=== PATIENT | female | born 2000 | race Two or more races ===

== ENCOUNTER 2023-09-29 13:51 | Emergency (ER) | payer MEDICAID ==
[~2023-09-29] VITALS: Ht 167.6 cm; Wt 55.0 kg
[2023-09-29 15:04] LABS: Urine Amorphous Crystal FEW /hpf (None Seen); Urine Bacteria FEW /hpf (None Seen); Urine Blood Negative /uL (Negative); Urine Clarity Turbid (Clear); Urine Color Yellow (Yellow); Urine Mucus FEW (None Seen); Urine Protein, UAD TRACE (Negative); Urine Specific Gravity 1.024 (1.001-1.035); Urine Urobilinogen Normal (Negative); Urine WBC 2 /hpf (0 - 5)
[2023-09-29 20:00] VITALS: BP 115/59; PULSE 90; RESP 18; O2SAT 100
== END 2023-09-29 20:09 | disposition home or self-care (01) ==
LOC: ER 13:51
DX: O20.0 Threatened abortion (principal); R10.2 Pelvic and perineal pain; Z3A.17 17 weeks gestation of pregnancy
CPT/HCPCS: 36415; 76805; 81001; 84702